=== PATIENT | male | born 1960 ===

== ENCOUNTER → 2017-06-13 | Outpatient (CLI) | payer BC ==
--- NOTE | 2017-06-14 08:12 | CONS ---
CONSULTATION DATE OF SERVICE: 06/13/2017 A 56-year-old gentleman had been evaluated in the sleep center for possible obstructive sleep apnea-hypopnea syndrome. HISTORY OF PRESENT ILLNESS/SLEEP-WAKE EVALUATION: SLEEP SCHEDULE: Patient's usual sleep schedule on weekdays from 10 p.m. to 5 a.m. and on weekends from around 10:30 p.m. until 7:30 a.m. FALLING ASLEEP: Usually no problem with falling asleep. No TV in bedroom. DURING SLEEP: He prefers to sleep on the side position. He sleeps with his with loud snoring and witnessed episodes of stopped breathing during the sleep. The patient wakes up form from sleep 5 times with up to 5 episodes of nocturia. DURING THE DAY/WAKE STAT: In the morning, patient wakes up tired, falling asleep during the day. Blandon Sleepiness Scale significantly increased to 17. No history of hypnagogic hallucinations, sleep paralysis or cataplexy. PAST MEDICAL HISTORY: Positive for hypertension, obesity, back problems. PAST SURGICAL HISTORY: Steroid injection to the back. MEDICATIONS: Lisinopril and second medication for the blood pressure, patient forgot the name of medication. SOCIAL HISTORY: Negative for smoking. Alcohol consumption occasional. REVIEW OF SYSTEMS: Multiple awakenings from sleep, sleepiness during the day. No fevers. No double vision. No recent chest pain. No shortness of breath. No abdominal pain. No bleeding episodes. No blood in urine. No seizure episodes. FAMILY HISTORY: Snoring. Many family members are tall. PHYSICAL EXAMINATION: GENERAL: During physical exam, a 56-year-old gentleman without distress. VITAL SIGNS: BP 150/80, HR 62, RR 16, height , weight 361, BMI 40.6. Neck 16-1/2 inches in circumference. Temperature 97.9. Oxygen saturation on room air 94%. HEENT: PERRLA, EOMI. Oropharynx low position of soft palate. Neck Supple, no JVD. Thyroid is not palpable. LUNGS Clear to percussion and to auscultation. Good air exchange. No wheezing or rhonchi. HEART S1, S2 regular. No murmurs, gallops, or rubs. ABDOMEN Soft and nontender. Bowel sounds are present. No organomegaly appreciated. EXTREMITIES No clubbing or cyanosis. 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 Cranial nerves 2 to 7 intact. There is no fasciculation or atrophy. noted. No focal deficits observed. IMPRESSION: 1. Snoring, witnessed episodes of stopped breathing during the sleep, multiple awakenings from sleep, significant excessive daytime sleepiness. Blandon Sleepiness Scale increased to 17. 2. Significant excessive daytime sleepiness dictate necessity to include hypersomnia in differential diagnosis. No history of cataplexy, sleep paralysis or hypnagogic hallucinations, although. 3. Obesity, body mass index 40.6. 4. Hypertension. 5. Back problems, status post steroid injection. PLAN: 1. Polysomnography for evaluation of patient's breathing during sleep. 2. CPAP/BiPAP titration if sleep study confirms obstructive sleep apnea-hypopnea syndrome. 3. Preferable position during sleep on the side. 4. No driving if patient feels any sleepiness. Patient is aware of civil and criminal liability for unsafe driving. 5. I will see patient for follow-up visit to explain results of testing and following plan. Sincerely, Abdullahi Wall MD, PhD, FAASM Diplomat of [place] [employer] [place] [employer] Mechanical Operator of [facility] MMODL / IJN: [id number] /
== END | disposition home or self-care (01) ==
LOC: SLEEP 16:57
PROVIDERS: ATTEND Internal Medicine
DX: R06.83 Snoring (principal); E66.9 Obesity, unspecified; I10 Essential (primary) hypertension; G47.10 Hypersomnia, unspecified
CPT/HCPCS: 99211

== ENCOUNTER 2020-01-16 19:21 | Inpatient (IN) | payer BC, OTHER ==
[2020-01-16 20:29] LABS: Basophils % (A) 0 %; Eosinophils # (A) 0.2 k/uL (0-0.7); Eosinophils % (A) 2 %; HCT 41.9 % (39.0-53.0); HGB 13.9 gm/dL (13.0-17.5); Lymphocytes # (A) 1.3 k/uL (1.0-4.8); Lymphocytes % (A) 11 %; MCH 29.1 pg (25.0-35.0); MCHC 33.1 g/dL (31.0-37.0); MCV 87.7 fL (80.0-100.0); Mean Platelet Volume 7.8; Monocytes # (A) 0.7 k/uL (0-1.0); Monocytes % (A) 6 %; Neutrophils # (A) 9.5 k/uL (1.3-7.7); Neutrophils % (A) 80 %; Platelet Count 174 k/uL (150-450); RBC 4.77 m/uL (4.30-5.90); RDW 12.7 % (11.5-15.5); WBC 11.9 k/uL (3.8-10.6)
[2020-01-16] MEDS ORDERED: KETOROLAC 30 MG/ML 1 ML VIAL IVP STA (20:37)
[2020-01-16 20:39] LABS: ALT 28 U/L (4-49); AST 27 U/L (17-59); African American GFR (CKD) >90 (>60 ml/min/1.73 sqM); Albumin 3.4 g/dL (3.5-5.0); Alkaline Phosphatase 90 U/L (38-126); Anion Gap 8 mmol/L; Blood Urea Nitrogen 14 mg/dL (9-20); Calcium 8.4 mg/dL (8.4-10.2); Carbon Dioxide 21 mmol/L (22-30); Chloride 106 mmol/L (98-107); Glucose 138 mg/dL (74-99); Non-African American GFR(CKD) 87 (>60 ml/min/1.73 sqM); Potassium 3.9 mmol/L (3.5-5.1); Sodium 135 mmol/L (137-145); Total Bilirubin 0.7 mg/dL (0.2-1.3); Total Protein 6.3 g/dL (6.3-8.2)
--- NOTE | 2020-01-16 20:44 | US ---
EXAMINATION TYPE: US venous doppler duplex LE RT DATE OF EXAM: 01/16/2020 8:37 PM COMPARISON: NONE CLINICAL HISTORY: warmth, swelling, redness. Patient hit right bryan on something x1 month ago, pain and redness starting 3 days ago SIDE PERFORMED: Right TECHNIQUE: The lower extremity deep venous system is examined utilizing real time linear array sonog darwin with graded compression, doppler sonography and color-flow sonography. VESSELS IMAGED: External Iliac Vein (EIV) Common Femoral Vein Deep Femoral Vein Greater Saphenous Vein * Femoral Vein Popliteal Vein Small Saphenous Vein * Proximal Calf Veins (* superficial vessels) Right Leg: Negative for DVT. At the area of the patient's redness on the right bryan, there is a comp joaquin area visualized measuring 5.8 x 1.8 x 5.6 cm Left Leg: IMPRESSION: No evidence of deep vein thrombosis in the right leg. Complex elongated fluid collection in the right calf. I would consider possibilities of abscess and h ematoma.
[2020-01-16 20:51] LABS: C Reactive Protein 170.2 mg/L (<10.0)
[2020-01-16] MEDS ORDERED: ACETAMINOPHEN TAB 325 MG TAB PO PRN (21:22)
[2020-01-16] MEDS ORDERED: IBUPROFEN 400 MG TAB PO PRN (21:22)
[2020-01-16] MEDS ORDERED: NALOXONE 0.4 MG/ML 1 ML VIAL IV PRN (21:22)
--- NOTE | 2020-01-16 21:22 | ED ---
General Adult HPI - General Chief complaint: Extremity Injury, Lower Stated complaint: Cellulitis Time Seen by Provider: 01/16/20 19:34 Source: patient, family Mode of arrival: wheelchair Limitations: physical limitation - History of Present Illness Initial comments: The patient is a 59-year-old male with past history of hypertension who presents to the emergency room with right lower extremity redness and swelling. Reports that one month ago he ended up hitting his bryan on a piece of farm equipment and developed ecchymosis over the site. States that this then resolved however over the past 3 days he has developed redness and swelling. He was seen at an urgent care yesterday and was diagnosed with cellulitis. They placed him on Keflex and has taken 4 doses so far. They did put an outline around the redness and states that the swelling has extended more proximal than the outline. Redness has now extended up to the patient's knee when yesterday it was only mid calf. Does admit to fevers of 102 at home. He took 500 mg of Tylenol prior to arrival. He denies a history of MRSA. No ankle, knee or hip pain. No hardware in the extremity. Denies a history of DVT or PE. Patient is not on any blood thinners. There are no other alleviating, precipitating or modifying factors - Related Data Home Medications Medication Instructions Recorded Confirmed Lisinopril 40 mg PO DAILY 01/16/20 01/16/20 amLODIPine [Norvasc] 10 mg PO DAILY 01/16/20 01/16/20 Allergies Allergy/AdvReac Type Severity Reaction Status Date / Time No Known Allergies Allergy Verified 01/16/20 21:31 Review of Systems ROS Statement: Those systems with pertinent positive or pertinent negative responses have been documented in the HPI. ROS Other: All systems not noted in ROS Statement are negative. Past Medical History Past Medical History: Hypertension History of Any Multi-Drug Resistant Organisms: None Reported Past Surgical History: No Surgical Hx Reported Past Psychological History: No Psychological Hx Reported Smoking Status: Never smoker Past Alcohol Use History: Occasional Past Drug Use History: None Reported - Past Family History Father Family Medical History: No Reported History General Exam Limitations: physical limitation General appearance: alert, in no apparent distress Respiratory exam: Present: normal lung sounds bilaterally. Absent: respiratory distress, wheezes, rales, rhonchi, stridor Cardiovascular Exam: Present: regular rate, normal rhythm, normal heart sounds. Absent: systolic murmur, diastolic murmur, rubs, gallop, clicks GI/Abdominal exam: Present: soft, normal bowel sounds. Absent: distended, tenderness, guarding, rebound, rigid Extremities exam: Present: other (redness right anterior skin. Extends ankle to just distal to the knee and wraps along the medial aspect. No obvious overlying disrupted skin. There is pitting edema but no gross fluctuance. Compartments are soft. 2+ DP and PT pulses. Intact distal sensation. 5/5 muscle strength in the bilateral lower extremities including hip flexors, knee extensors, ankle and great toe dorsiflexors and foot plantarflexors) Course Vital Signs 01/16/20 01/16/20 19:28 22:06 Temperature 99.7 F H 98.2 F Pulse Rate 85 60 Respiratory 17 18 Rate Blood Pressure 102/67 104/57 O2 Sat by Pulse 96 95 Oximetry Medical Decision Making - Medical Decision Making Upon arrival the patient is placed in room 10. A thorough history and physical exam was performed. Peripheral IV was established. Laboratory studies were conducted. The patient had an ultrasound of his right lower trauma performed. Every studies demonstrate a C-reactive protein of 170. White blood cell count is 11.9. Ultrasound is negative for DVT however at the area of the patient's redness there is a complex area visualized 5.8 x 1.8 x 5.6 cm. this is concerning for hematoma versus abscess. I discussed this information with the patient. Blood cultures were obtained and the patient was started on Unasyn and Vanco. I did perform a CT of the patient's lower extremity which continues to demonstrate that starting of fluid involving the medial and anterior aspect of the Related to cellulitis and abscess. I called and discussed the case with Dr. Pardo. He accepted admission for the patient. I did place orthopedic on consult as well as Dr. Rodriguez. Patient reluctant to stay however I did discuss the risk of losing his limb and even secondary to untreated abscess. Patient understood and agreed to stay. Patient was transported the floor in stable condition - Lab Data Result diagrams: 01/18/20 06:02 01/18/20 06:02 Lab Results 01/16/20 01/16/20 01/16/20 Range/Units 20:15 20:15 20:15 WBC 11.9 H (3.8-10.6) k/uL RBC 4.77 (4.30-5.90) m/uL Hgb 13.9 (13.0-17.5) gm/dL Hct 41.9 (39.0-53.0) % MCV 87.7 (80.0-100.0) fL MCH 29.1 (25.0-35.0) pg MCHC 33.1 (31.0-37.0) g/dL RDW 12.7 (11.5-15.5) % Plt Count 174 (150-450) k/uL Neutrophils % 80 % Lymphocytes % 11 % Monocytes % 6 % Eosinophils % 2 % Basophils % 0 % Neutrophils # 9.5 H (1.3-7.7) k/uL Lymphocytes # 1.3 (1.0-4.8) k/uL Monocytes # 0.7 (0-1.0) k/uL Eosinophils # 0.2 (0-0.7) k/uL Basophils # 0.0 (0-0.2) k/uL Sodium 135 L (137-145) mmol/L Potassium 3.9 (3.5-5.1) mmol/L Chloride 106 (98-107) mmol/L Carbon Dioxide 21 L (22-30) mmol/L Anion Gap 8 mmol/L BUN 14 (9-20) mg/dL Creatinine 0.97 (0.66-1.25) mg/dL Est GFR (CKD-EPI)AfAm >90 (>60 ml/min/1.73 sqM) Est GFR (CKD-EPI)NonAf 87 (>60 ml/min/1.73 sqM) Glucose 138 H (74-99) mg/dL Plasma Lactic Acid Jaswant 0.7 (0.7-2.0) mmol/L Calcium 8.4 (8.4-10.2) mg/dL Total Bilirubin 0.7 (0.2-1.3) mg/dL AST 27 (17-59) U/L ALT 28 (4-49) U/L Alkaline Phosphatase 90 (38-126) U/L C-Reactive Protein 170.2 H (<10.0) mg/L Total Protein 6.3 (6.3-8.2) g/dL Albumin 3.4 L (3.5-5.0) g/dL Disposition Clinical Impression: Cellulitis, Abscess, Pyrexia Disposition: ADMITTED IP [facility] Condition: Stable Is patient prescribed a controlled substance at d/c from ED?: No Decision to Admit Reason: Admit from EC Decision Date: 01/16/20 Decision Time: 21:22
[2020-01-16] MEDS ORDERED: VANCOMYCIN IV PER PHARMACY 1 EACH MISC MISCELLANE PRN (21:26)
[2020-01-16] MEDS ORDERED: AMPICILLIN-SULBACTAM 3 GM in SODIUM CHLORIDE 0.9% 100 ML IVPB ONE (22:00)
[2020-01-16] MEDS: SODIUM CHLORIDE 0.9% 1,000 ML IV SCH (22:03)
--- NOTE | 2020-01-16 22:17 | CT ---
EXAMINATION TYPE: CT lower extremity RT w con DATE OF EXAM: 01/16/2020 COMPARISON: None HISTORY: right lower leg pain, redness, swelling CT DLP: 334.6 mGycm Automated exposure control for dose reduction was used. CONTRAST: Performed with IV Contrast, patient injected with 100 mL of Isovue 300. Images were obtained from the distal femur to the distal tibia with intravenous contrast. There is diffuse subcutaneous edema around the lower leg. There is fat stranding and fluid involving the medial aspect of the calf muscle. There is no sign of knee joint effusion. There is subcutaneous fluid collection over the anterior medial aspect of the lower tibia that measures 4.7 x 1.8 cm in tra nsverse maximum dimension. The length is 10 cm. I see no bony destructive process. There is no pathologic enhancement. IMPRESSION: No fracture seen. Fat stranding and fluid involving the medial and anterior aspect of the calf that c ould relate to cellulitis and abscess. Elongated fluid collection seen in the subcutaneous tissues.
[2020-01-16] MEDS ORDERED: VANCOMYCIN 2,000 MG in SODIUM CHLORIDE 0.9% 500 ML 500 ML IVPB ONE (23:00)
[2020-01-17 06:36] LABS: Basophils % (A) 0 %; Eosinophils % (A) 0 %; HCT 41.6 % (39.0-53.0); HGB 13.2 gm/dL (13.0-17.5); Lymphocytes # (A) 1.2 k/uL (1.0-4.8); Lymphocytes % (A) 10 %; MCH 28.5 pg (25.0-35.0); MCHC 31.8 g/dL (31.0-37.0); MCV 89.6 fL (80.0-100.0); Mean Platelet Volume 8.2; Monocytes # (A) 0.8 k/uL (0-1.0); Monocytes % (A) 7 %; Neutrophils # (A) 9.6 k/uL (1.3-7.7); Neutrophils % (A) 81 %; Platelet Count 167 k/uL (150-450); RBC 4.64 m/uL (4.30-5.90); WBC 11.9 k/uL (3.8-10.6)
[2020-01-17 06:54] LABS: ALT 26 U/L (4-49); AST 22 U/L (17-59); African American GFR (CKD) >90 (>60 ml/min/1.73 sqM); Albumin 3.3 g/dL (3.5-5.0); Alkaline Phosphatase 98 U/L (38-126); Anion Gap 6 mmol/L; Blood Urea Nitrogen 14 mg/dL (9-20); Calcium 8.1 mg/dL (8.4-10.2); Carbon Dioxide 26 mmol/L (22-30); Chloride 105 mmol/L (98-107); Glucose 107 mg/dL (74-99); Non-African American GFR(CKD) >90 (>60 ml/min/1.73 sqM); Potassium 3.9 mmol/L (3.5-5.1); Sodium 137 mmol/L (137-145); Total Bilirubin 0.9 mg/dL (0.2-1.3); Total Protein 6.2 g/dL (6.3-8.2)
[2020-01-17] MEDS: KETOROLAC 30 MG/ML 1 ML VIAL IVP PRN ×3 (07:42→23:48)
[2020-01-17] MEDS: amLODIPine 10 MG TAB PO SCH (07:43)
[2020-01-17] MEDS: LISINOPRIL 20 MG TAB PO SCH (07:43)
[2020-01-17] MEDS: VANCOMYCIN 2,000 MG in SODIUM CHLORIDE 0.9% 500 ML 500 ML IVPB SCH ×2 (07:44→15:43)
[2020-01-17] MEDS: SODIUM CHLORIDE 0.9% 1,000 ML IV SCH ×2 (11:06→20:08)
[2020-01-17] MEDS: HYDROcodone/APAP 7.5-325MG 1 EACH TAB PO PRN ×2 (12:00→21:34)
--- NOTE | 2020-01-17 12:09 | P.CNOR ---
History of Present Illness - [facility] Consult date: 01/17/20 Consult reason: other History of present illness: Patient is a 59-year-old male who presented to [facility] yesterday evening with regards to redness, pain, swelling involving his right lower extremity. Apparently about a month ago patient was working with some farm equipment and scraped the anterior aspect of his right lower leg. This seemed to subsequently improve and had no acute issues. He states about 3 days ago he started to notice swelling and redness of the lower extremity. Since it started, it has not improved, he is also developed fevers which prompted him to come to the hospital. Upon arrival to the hospital, imaging and lab tests were done. Labs revealed elevated white blood cell count and CRP level. Ultrasound was negative for acute DVT, computed tomography scan of lower leg did notice significant soft tissue swelling involving the right calf area. Patient was admitted under internal medicine, our orthopedic team and infectious disease was consult. Patient was evaluated today at bedside, he is resting comfortably. He notes most of the discomfort in the leg happens when he weightbears. He denies any fevers at this time. He denies any chills, episodes of vomiting. Sides the discomfort in the right lower leg, he has no other orthopedic complaints. He d enies any previous surgery on the right lower extremity. Review of Systems Constitutional: Reports as per [facility] Past Medical History Past Medical History: Hypertension History of Any Multi-Drug Resistant Organisms: None Reported Past Surgical History: No Surgical Hx Reported Additional Past Surgical History / Comment(s): cortizone shot in back Past Anesthesia/Blood Transfusion Reactions: No Reported Reaction Past Psychological History: No Psychological Hx Reported Smoking Status: Never smoker Past Alcohol Use History: Occasional Past Drug Use History: None Reported - Past Family History Father Family Medical History: No Reported History Medications and Allergies Home Medications Medication Instructions Recorded Confirmed Type Lisinopril 40 mg PO DAILY 01/16/20 01/16/20 History amLODIPine [Norvasc] 10 mg PO DAILY 01/16/20 01/16/20 History Allergies Allergy/AdvReac Type Severity Reaction Status Date / Time No Known Allergies Allergy Verified 01/16/20 21:31 Physical Examination Right lower extremity: No obvious open lesions or sores visualized. Obvious erythema and soft tissue swelling noted in the right lower extremity, this is distal to the knee and proximal to the ankle. It extends over the anterior aspect of the lower leg w raps around the medial side into the calf region. There are multiple black marker circles representing areas of erythema. They seem to have extended past the initial lines. The calf is soft with palpation. Area of significant swelling and most tenderness is over the tibia meets the calf muscle along the medial border. Difficult to appreciate an area of fluctuance versus soft tissue swelling. Plantar flexion, dorsiflexion, EHL, FHL are intact, no tenderness around the ankle with range of motion. Patient is full motion with extension and flexion at the knee, no pain reproduced. There is no effusion present. Logroll maneuver the hip reproduces no pain. Sensory exam to light touch throughout the extremities intact, his dorsalis pedis pulses 2+. Results - Labs Labs: Abnormal Lab Results - Last 24 Hours (Table) 01/16/20 01/16/20 01/16/20 Range/Units 20:15 20:15 23:52 WBC 11.9 H (3.8-10.6) k/uL Neutrophils # 9.5 H (1.3-7.7) k/uL Sodium 135 L (137-145) mmol/L Carbon Dioxide 21 L (22-30) mmol/L Glucose 138 H (74-99) mg/dL Calcium (8.4-10.2) mg/dL C-Reactive Protein 170.2 H 162.3 H (<10.0) mg/L Total Protein (6.3-8.2) g/dL Albumin 3.4 L (3.5-5.0) g/dL 01/17/20 01/17/20 Range/Units 05:46 05:46 WBC 11.9 H (3.8-10.6) k/uL Neutrophils # 9.6 H (1.3-7.7) k/uL Sodium (137-145) mmol/L Carbon Dioxide (22-30) mmol/L Glucose 107 H (74-99) mg/dL Calcium 8.1 L (8.4-10.2) mg/dL C-Reactive Protein (<10.0) mg/L Total Protein 6.2 L (6.3-8.2) g/dL Albumin 3.3 L (3.5-5.0) g/dL H & H 01/16/20 01/17/20 Range/Units 20:15 05:46 Hgb 13.9 13.2 (13.0-17.5) gm/dL Hct 41.9 41.6 (39.0-53.0) % Result Diagrams: 01/17/20 05:46 01/17/20 05:46 Assessment and Plan Plan: Imaging: Report from the computed tomography scan of the leg was reviewed, they no fluid collection in the calf region. Ultrasound was negative for DVT according to report Assessment: 1. Right lower extremity cellulitis 2. Possible right lower extremity abscess 3. Other medical comorbidities Plan: I was able to discuss the case, including with physical exam findings and imaging studies might attending Dr. Nelson. There is a possibility that abscess has formed in the right lower leg, I will tentatively schedule the patient for an incision and drainage with irrigation and debridement for . I would like to continue the IV antibiotics and reevaluate the morning of 01/18/2020 Patient will be made nothing by mouth after midnight Other director medical science recommendations Recommend weight-bear as tolerated, ice and elevate often Pain control Further recommendations to follow
--- NOTE | 2020-01-17 17:00 | CONS ---
CONSULTATION DATE OF CONSULTATION: 01/17/2020. REASON FOR CONSULTATION: Right lower extremity cellulitis. HISTORY OF PRESENT ILLNESS: The patient is a 59-year-old male who apparently did have a history of a fall with something about a month ago and scraped the anterior aspect of his right leg. This subsequently healed up and the patient had no issue until about 3 days when he started having swelling and redness of the right anterior as well as the posterior leg area. The patient denies any further trauma. Has been complaining of pain to the leg to be throbbing, almost 7 out of 10 in severity. The patient went to an Urgent Care in the [facility]. The patient has been diagnosed with cellulitis. The patient was started on oral Keflex. The patient took about 4 doses. The patient did have a ana this around the area of the redness and was told if any swelling or redness has crossed in that ana to go to the ER. The patient subsequently presented to the ER last night with concern for worsening cellulitis of the right lower extremity. On arrival to the ER, the patient did have a low-grade fever of 99.7, white count 11.1. CRP was elevated at 170. He did have blood cultures drawn which are currently pending. The patient did have a lower extremity Doppler was negative for DVT. CT was suggestive of cellulitis and possible fluid collection on the posterior leg area. Patient was started on vancomycin and admitted to the hospital. Infectious Disease was consulted for further recommendations regarding antibiotic therapy. REVIEW OF SYSTEMS: Positive points have been mentioned in HPI. Rest of systems are negative. PAST MEDICAL HISTORY: Hypertension. PAST SURGICAL HISTORY: No surgeries. SOCIAL HISTORY: Patient occasionally drinks. Denies smoking or drug use. FAMILY HISTORY: No pertinent findings noticed. ALLERGIES: No known drug allergies. MEDICATIONS: The patient is currently on Tylenol, [place], Norvasc, Motrin, Toradol, Zestril, Narcan, and vancomycin, pharmacy to dose. Patient is currently getting 2 grams q.12 hours after the dose of Unasyn in the ER yesterday. PHYSICAL EXAMINATION: Blood pressure 124/64 with a pulse of 71, temperature 98.1. He is 94% on room air. General description is a middle-aged male lying in bed in no distress. No tachypnea or accessory muscle of respiration use. HEENT: Shows no pallor or scleral icterus. Oral mucosa membranes dry. No pharyngeal erythema or thrush. Neck: Trachea central. No thyromegaly. LUNGS: Unlabored breathing. Clear to auscultation anteriorly. No wheeze or crackles. Heart S1, S2. Regular rate and rhythm. ABDOMEN: Soft, no tenderness. No rigidity. Extremities: Right leg did have diffuse swelling and redness slightly tender on the posterior aspect area. No fluctuation induration or any drainage was noticed. NEUROLOGIC: The patient is awake, alert and oriented times three. Mood and affect normal. LABS: Hemoglobin 13.2, white count 11.9 with a BUN of 14, creatinine 0.91. Electrolytes have been normal. Liver enzymes are normal. Blood culture so far pending. Lower extremity CT and ultrasound report as mentioned above. DIAGNOSTIC IMPRESSION AND PLAN: Patient admitted to the hospital with acute right lower extremity cellulitis in this patient who did have diffuse swelling and redness with question of possible fluid collection. Clinically not behaving as an abscess. Though not entirely excluded. Possible hematoma and likely need to cover for the Gram-positive skin александр such as strep. The patient seemed to be less risk factor for a community assisted MRSA infection. PLAN: 1. Discontinue vancomycin. 2. Start cefazolin 2 grams q.8 hours. 3. Await surgical I and D of that area and fluid should be sent for culture. 4. We will follow on his clinical condition and culture to further adjust medication if needed. Thank you for this consultation. We will follow this patient along with you. MMODL / IJN: [id number] /
--- NOTE | 2020-01-17 17:06 | HP ---
HISTORY AND PHYSICAL 59-year-old white male presents with trauma to his leg 2 weeks ago. Since then, he has had redness, pain, swelling with great amount of swelling in his right lower extremity. CT scan shows possible abscess in his leg. He had elevated white cell CRP. No fever, chills. Ultrasound was negative for DVT, but he had some severe swelling and possible abscess. We are going to decide whether just to continue IV antibiotics or do an incision and drainage per orthopedics or Infectious Disease. PAST MEDICAL HISTORY: Past medical history of hypertension and he has had cortisone shots in his back. Otherwise unremarkable past medical history. HOME MEDICINES: Lisinopril 40 daily, amlodipine 10 mg daily. ALLERGIES: No known drug allergies. PHYSICAL EXAMINATION: CARDIOVASCULAR: S1, S2. Lungs clear. Hematology negative Homans. Psych fair mood and affect. Neurologic cranial nerves intact. Integument shows significant redness swelling to the right lower calf area distal to the knee, proximal to the ankle and spreads to the anterior aspect of the lower leg and to the medial calf region. Multiple black marker circles. There is erythema and the redness appears to be going past these lines. He says the swelling has worsened over the last night. ASSESSMENT: 1. Cellulitis versus abscess right lower leg, rapidly progressive. 2. Leukocytosis secondary to above. 3. Hypertension. PLAN: Continue with IV antibiotics. I would possibly recommend incision and drainage. Continue with IV antibiotics. If he does not improve, we will need infectious incision and drainage. Infectious Disease consult is pending. MMODL / IJN: [id number] /
[2020-01-18 06:12] LABS: Basophils % (A) 1 %; Eosinophils # (A) 0.1 k/uL (0-0.7); Eosinophils % (A) 2 %; HCT 41.7 % (39.0-53.0); HGB 13.2 gm/dL (13.0-17.5); Lymphocytes # (A) 1.2 k/uL (1.0-4.8); Lymphocytes % (A) 15 %; MCH 28.7 pg (25.0-35.0); MCHC 31.7 g/dL (31.0-37.0); MCV 90.5 fL (80.0-100.0); Mean Platelet Volume 7.9; Monocytes # (A) 0.6 k/uL (0-1.0); Monocytes % (A) 8 %; Neutrophils # (A) 5.9 k/uL (1.3-7.7); Neutrophils % (A) 73 %; Platelet Count 180 k/uL (150-450); RBC 4.61 m/uL (4.30-5.90); RDW 13.1 % (11.5-15.5)
[2020-01-18 06:30] LABS: African American GFR (CKD) >90 (>60 ml/min/1.73 sqM); Anion Gap 5 mmol/L; Blood Urea Nitrogen 15 mg/dL (9-20); Calcium 8.2 mg/dL (8.4-10.2); Carbon Dioxide 26 mmol/L (22-30); Chloride 106 mmol/L (98-107); Glucose 113 mg/dL (74-99); Non-African American GFR(CKD) >90 (>60 ml/min/1.73 sqM); Potassium 4.7 mmol/L (3.5-5.1); Sodium 137 mmol/L (137-145)
[2020-01-18] MEDS ORDERED: VANCOMYCIN TROUGH DUE 1 EACH MISC MISCELLANE ONE (07:00)
[2020-01-18] MEDS: LISINOPRIL 20 MG TAB PO SCH (08:50)
[2020-01-18] MEDS: amLODIPine 10 MG TAB PO SCH (08:50)
[2020-01-18] MEDS: SODIUM CHLORIDE 0.9% 1,000 ML IV SCH ×2 (08:57→17:10)
[2020-01-18] MEDS ORDERED: SODIUM CHLORIDE 0.9% 1,000 ML IV ONE (09:39)
[2020-01-18] MEDS ORDERED: MIDAZOLAM 2 MG/2 ML VIAL ONE (10:31)
[2020-01-18] MEDS ORDERED: ALFENTANIL 500 MCG/ML 2 ML AMP IV ONE (10:31)
[2020-01-18] MEDS ORDERED: SUCCINYLCHOLINE CHLORIDE 100 MG/5 ML SYR IV ONE (10:31)
[2020-01-18] MEDS ORDERED: LIDOCAINE 1% INJ 10MG/ML (20 ML MDV) ONE (10:31)
[2020-01-18] MEDS ORDERED: PROPOFOL 10 MG/ML 20 ML VIAL IV ONE (10:31)
--- NOTE | 2020-01-18 11:19 | P.OP ---
Date of Procedure: 01/18/20 Preoperative Diagnosis: Right lower extremity abscess Postoperative Diagnosis: Right lower extremity abscess Procedure(s) Performed: Incision with drainage and irrigation right lower extremity abscess Anesthesia: ADILENE Surgeon: Kade Nelson Estimated Blood Loss (ml): 12 Pathology: none sent Condition: stable Disposition: PACU Indications for Procedure: 59-year-old patient seen with a probable right lower extremity abscess. We discussed incision with drainage and irrigation. Patient was agreeable and consent was obtained. Operative Findings: See description of procedure Description of Procedure: The patient was taken to the operative suite. The patient underwent a general anesthetic by the department of anesthesia. A well-padded tourniquet was placed on the right proximal lower extremity. Right lower extremity was prepped and draped in the normal sterile orthopedic fashion. I now made an incision measuring approximately 5 cm in length linear probable incision. I bluntly dissected down and noted a moderate abscess with che colored serous fluid. Cultures were obtained of this fluid. The cavity was explored and there was no debris or necrotic tissue in that cavity. The cavity was noted to be along the junction of the soleus and gastrocnemius posteriorly and along the anterior tibialis in the anterior tibia anteriorly. I irrigated the wound copiously with normal saline. We then explored the wound one more time and noted no residual abnormal looking tissue. I now loosely repaired the incision with nylon suture with a underlying drain in place. Sterile dressings were applied. No tourniquet was utilized. The patient was awakened, transferred to a bed and recovery stable condition.
[2020-01-18] MEDS ORDERED: HYDROmorphone 1 MG/ML 1 ML SYRINGE IVP PRN (11:24)
[2020-01-18] MEDS: HYDROmorphone 1 MG/ML 1 ML SYRINGE IVP ONE ×2 (11:31→11:42)
[2020-01-18] MEDS: HYDROcodone/APAP 7.5-325MG 1 EACH TAB PO PRN (17:10)
--- NOTE | 2020-01-18 18:03 | PN ---
PROGRESS NOTE DATE OF SERVICE: 01/18/2020 REASON FOR FOLLOWUP: Right leg abscess and cellulitis. INTERVAL HISTORY: The patient is currently afebrile. The patient was taken to the OR and is status post drainage of the abscess. Cultures have been done which are currently pending. The patient's pain is currently controlled. Denies having any chest pain or shortness of breath or cough. No abdominal pain or diarrhea. PHYSICAL EXAMINATION: Blood pressure 119/67, pulse of 67, temperature 98.3. He is 93% on room air. General description is a middle-aged male lying in bed in no distress. RESPIRATORY SYSTEM: Unlabored breathing. Clear to auscultation anteriorly. HEART: S1, S2. Regular rate and rhythm. ABDOMEN: Soft. No tenderness. Right leg is currently dressed up. LABS: Hemoglobin 13.2 with a white count of 8.0, creatinine 0.84. DIAGNOSTIC IMPRESSION AND PLAN: Patient with right leg abscess and cellulitis, status post surgical drainage. Will wait for the cultures to finalize. Keep the patient on cefazolin and adjust antibiotic further on the basis of the culture report and monitor his clinical course closely. MMODL / IJN: [id number] /
[2020-01-18] MEDS: KETOROLAC 30 MG/ML 1 ML VIAL IVP PRN (20:37)
--- NOTE | 2020-01-18 20:55 | PN ---
PROGRESS NOTE This patient still has severe redness of the lower legs. Suspect he will have to go to surgery and have I&D done, which apparently he did today due to worsening leg. Dr. Nelson took him in for right lower extremity abscess. He had a 5 cm in length incision on his soleus gastrocnemius posteriorly. Irrigated the wound, placed sutures in there. He had a moderate abscess with che-colored serous fluid. Cultures were obtained and are pending. Remains on cefazolin [address] Rodriguez. Prognosis extremely guarded. Continue current treatments. MMODL / IJN: [id number] /
[2020-01-19] MEDS: SODIUM CHLORIDE 0.9% 1,000 ML IV SCH ×2 (03:07→16:34)
[2020-01-19] MEDS: LISINOPRIL 20 MG TAB PO SCH (08:40)
[2020-01-19] MEDS: amLODIPine 10 MG TAB PO SCH (08:40)
[2020-01-19] MEDS: KETOROLAC 30 MG/ML 1 ML VIAL IVP PRN ×2 (08:40→17:56)
--- NOTE | 2020-01-19 10:45 | P.PN ---
Subjective Progress Note Date: 01/19/20 Principal diagnosis: Status post I&D right leg abscess patient is examined today at bedside, he is resting comfortably. He notes some generalized discomfort in the region. Incision was made on the right lower leg. He has no fevers or chills at this time. Objective - Vital Signs Vital signs: Vital Signs Temp 97.9 F 01/19/20 04:54 Pulse 63 01/19/20 04:54 Resp 17 01/19/20 04:54 BP 134/72 01/19/20 04:54 Pulse Ox 96 01/19/20 05:23 Intake & Output 01/18/20 01/19/20 01/19/20 18:59 06:59 18:59 Intake Total 950 2600 Output Total 12 Balance 938 2600 Intake: IV 850 Intake, IV Titration 100 200 Amount Sodium Chloride 0.9% 1, 200 000 ml @ 75 mls/hr IV . [id number] [facility] Rx#:[id number] ceFAZolin 2 gm In Sodium 100 Chloride 0.9% 50 ml @ 100 mls/hr IVPB Q8HR [facility] Rx# :[id number] Oral 2400 Output: Estimated Blood Loss 12 Other: Voiding Method Toilet Toilet # Voids 3 4 - Exam Right lower extremity: Postoperative bandage was removed today bedside, incision is clean, dry and intact, the [place] drain is in good position. Gen. or swelling in that area has improved along with the erythema. He does have generalized tenderness in the lower leg. The calf is soft. Distal neurovascular exam is intact - Labs CBC & Chem 7: 01/18/20 06:02 01/18/20 06:02 Labs: Microbiology - Last 24 Hours (Table) 01/16/20 20:15 Blood Culture - Preliminary Blood No Growth after 48 hours 01/18/20 11:09 Gram Stain - Preliminary Leg - Right Wound Culture - Preliminary 01/18/20 11:09 Anaerobic Culture - Preliminary Leg - Right Assessment and Plan Plan: Assessment: Status post I&D right leg abscess Right leg cellulitis Plan: Await culture/sensitivity results Pain control, continue current medication Daily dressing changes/ice and elevate Weight-bear as tolerated Other medical staff services manager recommendations Further recommendations to follow Time with Patient: Less than 30
[2020-01-19] MEDS: ASPIRIN 81 MG PO SCH ×2 (12:24→20:09)
[2020-01-19] MEDS: HYDROcodone/APAP 7.5-325MG 1 EACH TAB PO PRN ×2 (16:35→22:43)
--- NOTE | 2020-01-19 17:11 | PN ---
PROGRESS NOTE DATE OF SERVICE: 01/19/2020. REASON FOR FOLLOWUP: Right leg abscess and cellulitis. INTERVAL HISTORY: The patient is currently afebrile. Overall pain and discomfort to the right leg is currently controlled. Denies having any chest pain or cough. No abdominal pain or diarrhea. PHYSICAL EXAMINATION: Blood pressure 140/74 with a pulse of 85, temperature 98, he is 93% on room air. General description is a middle-aged male, lying in bed in no distress. RESPIRATORY SYSTEM: Unlabored breathing, clear to auscultation anteriorly. HEART: S1, S2. Regular rate and rhythm. ABDOMEN: Soft, no tenderness. Right leg swelling and redness has improved. No drainage. DIAGNOSTIC IMPRESSION AND PLAN: Patient with right lower extremity abscess and cellulitis, status post drainage, waiting for the culture to finalize to determine discharge antibiotics. Currently covered with cefazolin to continue, adjusting antibiotic further based on culture report. Continue supportive care. MMODL / IJN: [id number] / MTDD
--- NOTE | 2020-01-19 17:33 | P.PN ---
Subjective Progress Note Date: 01/19/20 This is a 59-year-old gentleman admitted with right leg abscess, cellulitis, status post I&D, postop day #1. Tolerated procedure well. Pain controlled. Cultures pending. Maintained on IV ceftezolin as per infectious disease. Afebrile.. Objective - Vital Signs Vital signs: Vital Signs Temp 98 F 01/19/20 11:57 Pulse 65 01/19/20 11:57 Resp 18 01/19/20 15:28 BP 148/74 01/19/20 11:57 Pulse Ox 93 L 01/19/20 11:57 Intake & Output 01/18/20 01/19/20 01/19/20 18:59 06:59 18:59 Intake Total 950 2600 1400 Output Total 12 Balance 938 2600 1400 Intake: IV 850 Intake, IV Titration 100 200 750 Amount Sodium Chloride 0.9% 1, 200 650 000 ml @ 75 mls/hr IV . [id number] [facility] Rx#:[id number] ceFAZolin 2 gm In Sodium 100 100 Chloride 0.9% 50 ml @ 100 mls/hr IVPB Q8HR [facility] Rx# :[id number] Oral 2400 650 Output: Estimated Blood Loss 12 Other: Voiding Method Toilet Toilet Toilet # Voids 3 4 2 - Exam PHYSICAL EXAM: VITAL SIGNS: As above GENERAL: Sitting up in bed, no acute HEENT: Conjunctivae normal. eyes normal. NECK: No JVD. No thyroid enlargement. No LNs CARDIOVASCULAR: S1, S2 regular.. No murmur RESPIRATION: Breath sounds diminished in the bases. No rhonchi or crackles. No bronchial breathing. ABDOMEN: Soft, nontender . No guarding. no masses palpable. No ascites, No hepatosplenomegaly.Bowel sounds heard. LEGS: Right leg decreased edema, tender with dressing clean dry and intact,stephon drain present, soft calf. PSYCHIATRY: Alert and oriented X3, mood and affect normal. NERVOUS SYSTEM: Cranial N 2-12 grossly normal. Moves all 4 limbs.No focal deficits. Strength and sensation grossly intact. Skin: no rash, warm and dry Microbiology 01/16/20 20:15 Blood Blood Culture - Preliminary No Growth after 48 hours 01/18/20 11:09 Leg - Right Gram Stain - Preliminary 01/18/20 11:09 Leg - Right Wound Culture - Preliminary 01/18/20 11:09 Leg - Right Anaerobic Culture - Preliminary - Labs CBC & Chem 7: 01/18/20 06:02 01/18/20 06:02 Labs: Microbiology - Last 24 Hours (Table) 01/16/20 20:15 Blood Culture - Preliminary Blood No Growth after 48 hours 01/18/20 11:09 Gram Stain - Preliminary Leg - Right Wound Culture - Preliminary 01/18/20 11:09 Anaerobic Culture - Preliminary Leg - Right Assessment and Plan Assessment: Right lower extremity abscess with cellulitis, status post I&D Hypertension Plan: Continue on current medication regime ,monitoring and symptomatic treatment. Cultures pending. Maintain IV antibiotics as per ID. Pain manageme nt. Follow closely with both ID and orthopedic surgery. The impression and plan of care has been dictated as directed. : I performed a history and examination of this patient, discussed the same with the dictator. I agree with the dictator's note ,documented as a scribe. Any additional findings or plans will be noted.
[2020-01-20] MEDS: HYDROcodone/APAP 7.5-325MG 1 EACH TAB PO PRN ×2 (06:24→20:01)
[2020-01-20 07:01] LABS: Basophils % (A) 1 %; Eosinophils # (A) 0.3 k/uL (0-0.7); Eosinophils % (A) 4 %; HCT 40.4 % (39.0-53.0); Lymphocytes # (A) 1.4 k/uL (1.0-4.8); Lymphocytes % (A) 19 %; MCH 28.8 pg (25.0-35.0); MCHC 32.3 g/dL (31.0-37.0); MCV 89.3 fL (80.0-100.0); Mean Platelet Volume 7.3; Monocytes # (A) 0.7 k/uL (0-1.0); Monocytes % (A) 10 %; Neutrophils # (A) 4.6 k/uL (1.3-7.7); Neutrophils % (A) 65 %; Platelet Count 253 k/uL (150-450); RBC 4.52 m/uL (4.30-5.90); RDW 12.6 % (11.5-15.5); WBC 7.1 k/uL (3.8-10.6)
[2020-01-20 07:20] LABS: African American GFR (CKD) >90 (>60 ml/min/1.73 sqM); Anion Gap 9 mmol/L; Blood Urea Nitrogen 13 mg/dL (9-20); Calcium 8.6 mg/dL (8.4-10.2); Carbon Dioxide 27 mmol/L (22-30); Chloride 102 mmol/L (98-107); Glucose 98 mg/dL (74-99); Non-African American GFR(CKD) >90 (>60 ml/min/1.73 sqM); Potassium 4.6 mmol/L (3.5-5.1); Sodium 138 mmol/L (137-145)
[2020-01-20] MEDS: ASPIRIN 81 MG PO SCH ×2 (08:21→19:58)
[2020-01-20] MEDS: LISINOPRIL 20 MG TAB PO SCH (08:21)
[2020-01-20] MEDS: amLODIPine 10 MG TAB PO SCH (08:21)
[2020-01-20] MEDS: KETOROLAC 30 MG/ML 1 ML VIAL IVP PRN (08:24)
[2020-01-20] MEDS: SODIUM CHLORIDE 0.9% 1,000 ML IV SCH ×2 (11:03→18:31)
--- NOTE | 2020-01-20 11:36 | P.PN ---
Subjective Progress Note Date: 01/20/20 Principal diagnosis: Status post I&D right leg abscess patient is examined today at bedside, he is resting comfortably. He has no fevers or chills at this time. Objective - Vital Signs Vital signs: Vital Signs Temp 97.8 F 01/20/20 05:00 Pulse 60 01/20/20 05:00 Resp 16 01/20/20 05:00 BP 129/80 01/20/20 05:00 Pulse Ox 92 L 01/20/20 05:00 Intake & Output 01/19/20 01/20/20 01/20/20 18:59 06:59 18:59 Intake Total 2380 590 100 Balance 2380 590 100 Intake: Intake, IV Titration 750 100 Amount Sodium Chloride 0.9% 1, 650 000 ml @ 75 mls/hr IV . [id number] [facility] Rx#:[id number] ceFAZolin 2 gm In Sodium 100 100 Chloride 0.9% 50 ml @ 100 mls/hr IVPB Q8HR [facility] Rx# :[id number] Oral 1630 590 Other: Voiding Method Toilet Toilet Toilet # Voids 3 2 2 - Exam Right lower extremity: [place] drain was removed today, there is a small amount of serosanguineous drainage. Swelling and erythema has improved slightly. He does have generalized tenderness in the lower leg. The calf is soft. Distal neurovascular exam is intact - Labs CBC & Chem 7: 01/20/20 06:28 01/20/20 06:28 Labs: Microbiology - Last 24 Hours (Table) 01/18/20 11:09 Gram Stain - Final Leg - Right Wound Culture - Final Staphylococcus aureus 01/16/20 20:15 Blood Culture - Preliminary Blood No Growth after 72 hours Assessment and Plan Plan: Assessment: Status post I&D right leg abscess Right leg cellulitis Plan: Culture and sensitivity results reveal staph aureus bacteria, await infectious disease recommendations for outpatient antibiotics Pain control, continue current medication Daily dressing changes/ice and elevate Weight-bear as tolerated An orthopedic standpoint patient is stable for discharge and follow-up in the outpatient setting Time with Patient: Less than 30
[2020-01-20 11:54] VITALS: RESP 18
--- NOTE | 2020-01-20 14:26 | P.DS ---
Providers Date of admission: 01/19/20 09:18 Expected date of discharge: 01/20/20 Attending physician: Mckay Pardo Consults: 01/16/20 21:23 Consult Physician Routine Consulting Provider: Yesenia Rodriguez Consult Reason/Comments: right LE cellulitis, failed o/p tx Do you want consulting provider notified?: Yes 01/16/20 21:24 Consult Physician Urgent Consulting Provider: Kade Nelson Consult Reason/Comments: acute right lower extremity cellulitis, possible abscess Do you want consulting provider notified?: Yes Primary care physician: Fariha Li MD Hospital Course: Final Diagnoses: Right lower extremity abscess with cellulitis, status post I&D, blood cultures reporting MSSA, anaerobic culture pending. Hypertension Hospital course:This is a 59-year-old gentleman admitted with right leg abscess, cellulitis, status post I&D, postop day #1. Tolerated procedure well. Pain controlled. Cultures pending. Maintained on IV ceftezolin as per infectious disease. Afebrile. Preliminary blood cultures reporting no growth at 72 hours, left leg wound culture reported MSSA, anaerobic culture pending. Significant clinical improvement. Cleared by orthopedic surgery for discharge. Patient will be discharged home today pending final anaerobic results, DC antibiotics/clearance from infectious disease, in a stable condition with guarded Prognosis. The impression and plan of care has been dictated as directed. : I performed a history and examination of this patient, discussed the same with the dictator. I agree with the dictator's note ,documented as a scribe. Any additional findings or plans will be noted. Patient Condition at Discharge: Stable Plan - Discharge Summary Discharge Rx Participant: Yes New Discharge Prescriptions: New Ibuprofen 800 mg PO Q8H PRN #40 tab PRN Reason: Pain HYDROcodone/APAP 7.5-325MG [[place] 7.5] 1 each PO Q6HR PRN #28 tab PRN Reason: Pain Continue amLODIPine [Norvasc] 10 mg PO DAILY Lisinopril 40 mg PO DAILY Discharge Medication List Lisinopril 40 mg PO DAILY 01/16/20 [History] amLODIPine [Norvasc] 10 mg PO DAILY 01/16/20 [History] HYDROcodone/APAP 7.5-325MG [[place] 7.5] 1 each PO Q6HR PRN #28 tab 01/20/20 [Rx] Ibuprofen 800 mg PO Q8H PRN #40 tab 01/20/20 [Rx] Follow up Appointment(s)/Referral(s): Fariha Li MD [Primary Care Provider] - 3 Days Jerel Wilkerson PAC [PHYSICIAN TOUR OPERATOR] - 2 Weeks Activity/Diet/Wound Care/Special Instructions: Pending DC antibiotics/clearance from infectious disease Orthopedic discharge instructions: 1. Keep incision dry and covered while showering 2. Do not remove stitches 3. Ice and elevate often 4. Plan for follow-up in the outpatient setting in 2 weeks Discharge Disposition: HOME SELF-CARE
[2020-01-20] MEDS: DOCUSATE 100 MG CAP PO PRN (17:30)
--- NOTE | 2020-01-20 23:58 | P.PN ---
Progress Note - Text Progress Note Date: 01/20/20 .REASON FOR FOLLOWUP: Right leg abscess and cellulitis. INTERVAL HISTORY: The patient remains to be afebrile. The patient pain and discomfort to the right leg has decreased in intensity, the patient denies having any chest pain or cough. No abdominal pain or diarrhea. PHYSICAL EXAMINATION: Blood pressure 133/74 with a pulse of 84, temperature 98, he is 93% on room air. General description is a middle-aged male, lying in bed in no distress. RESPIRATORY SYSTEM: Unlabored breathing, clear to auscultation anteriorly. HEART: S1, S2. Regular rate and rhythm. ABDOMEN: Soft, no tenderness. Right leg swelling and redness has decreased no purulent drainage. LABS: White count is normal blood cultures are negative wound culture finalized with MSSA DIAGNOSTIC IMPRESSION AND PLAN: Patient with right lower extremity abscess and cellulitis, status post drainage, culture has been finalized with MSSA recommend keeping the patient on IV cefazolin for at least another 24-hour we will reevaluate the wound tomorrow to determine his discharge antibiotics questions and concerns were answered
[2020-01-21] MEDS: KETOROLAC 30 MG/ML 1 ML VIAL IVP PRN ×2 (00:10→10:55)
[2020-01-21 05:46] VITALS: BP 136/79; PULSE 52; TEMP 98.2
[2020-01-21] MEDS: LISINOPRIL 20 MG TAB PO SCH (08:28)
[2020-01-21] MEDS: ASPIRIN 81 MG PO SCH (08:29)
[2020-01-21] MEDS: amLODIPine 10 MG TAB PO SCH (08:29)
[2020-01-21] MEDS: DOCUSATE 100 MG CAP PO PRN (08:29)
[2020-01-21] MEDS: HYDROcodone/APAP 7.5-325MG 1 EACH TAB PO PRN (08:36)
[2020-01-21] MEDS: SODIUM CHLORIDE 0.9% 1,000 ML IV SCH (11:19)
--- NOTE | 2020-01-21 15:18 | PN ---
PROGRESS NOTE DATE OF SERVICE: 01/18/2020 REASON FOR FOLLOWUP: Right leg wound and cellulitis. INTERVAL HISTORY: The patient is seen on rounds this morning. The patient has been afebrile, breathing comfortably, overall pain discomfort. The right leg has decreased. Denies having any chest pain or cough. No abdominal pain. No diarrhea. PHYSICAL EXAMINATION: His blood pressure is 136/79 with a pulse of 52, temperature 98.2,. he is 94% on room air. The patient is a middle-aged male, lying in bed in no distress. RESPIRATORY SYSTEM: Unlabored breathing, clear to auscultation anteriorly. HEART: S1, S2. Regular rate and rhythm. ABDOMEN: Soft, no tenderness. Right leg swelling and has slightly decreased, no drainage. LABS: No new labs have been obtained today. Wound culture with MSSA blood culture has been negative. DIAGNOSTIC IMPRESSION AND PLAN: Patient with right lower extremity wound and secondary cellulitis. Culture has been positive for MSSA. The patient did have improvement, still has significant redness. We will discharge the patient home on oral Keflex 500 mg p.o. q.6 hours for 10 days. The patient instructed with any worsening swelling or redness or fever on oral antibiotics admitted right away. At that point will try to transition to IV antibiotic therapy. All his questions and concerns were answered. MMSEBASL / SERGEN: [id number] /
== END 2020-01-21 14:01 | disposition home or self-care (01) | DRG 581 ==
LOC: EC 19:21 → 5NMEDONC 21:23 → OBSVTOIN 01-19 09:18
PROVIDERS: ADMIT Family Medicine; ATTEND Family Medicine
PROC: 0J9N0ZZ Drainage of Right Lower Leg Subcutaneous Tissue and Fascia, Open Approach (ICD-10-PCS; principal; 2020-01-18 10:27)
DX: L02.415 Cutaneous abscess of right lower limb (principal); L03.115 Cellulitis of right lower limb; I10 Essential (primary) hypertension; B95.61 Methicillin susceptible Staphylococcus aureus infection as the cause of diseases classified elsewhere; Z79.899 Other long term (current) drug therapy
CPT/HCPCS: 36415; 80048; 80053; 83605; 85025; 86140; 87040; 87070; 87075; 87077; 87186; 87205; 96365; 96375; 99284

== ENCOUNTER 2025-03-31 12:36 | Emergency (ER) | payer OTHER ==
--- NOTE | 2025-03-31 12:59 | ED ---
Extremity Problem HPI - General Chief complaint: Extremity Problem,Nontraumatic Stated complaint: R Calf/Leg issue Time Seen by Provider: 03/31/25 12:42 Source: patient, RN notes reviewed Mode of arrival: ambulatory Limitations: no limitations - History of Present Illness Initial comments: 64-year-old male presenting to the emergency room with complaints of right lower extremity pain and swelling. He states that over the past 3 days he has noticed that the right calf is became swollen, erythematous, warm to the touch that has been spreading proximally up the calf. Patient states that he has a history of cellulitis and this is the same presentations when he had to be admitted to the hospital for multiple days for IV antibiotics. Patient denies fevers, chills, nausea, vomiting. States that he has mild pain with ambulation. Denies current antibiotic use. Denies history of DVT or PE. Denies chest pain or difficulty breathing. Patient did recently travel from an [facility] vacation. Denies blood thinner use. - Related Data Home Medications Medication Instructions Recorded Confirmed amLODIPine [Norvasc] 10 mg PO DAILY 01/16/20 01/16/20 lisinopriL 40 mg PO DAILY 01/16/20 01/16/20 Previous Rx's Medication Instructions Recorded HYDROcodone/APAP 7.5-325MG [[place] 1 each PO Q6HR PRN #28 tab 01/20/20 7.5] Ibuprofen 800 mg PO Q8H PRN #40 tab 01/20/20 cephALEXin [Keflex] 500 mg PO Q6HR 10 Days #40 cap 01/21/20 Cephalexin [Keflex] 500 mg PO Q6HR #40 cap 03/31/25 Sulfamethox-Tmp 800-160Mg [Bactrim 1 each PO Q12HR #20 tab 03/31/25 Ds] Allergies Allergy/AdvReac Type Severity Reaction Status Date / Time No Known Allergies Allergy Verified 03/31/25 12:41 Review of Systems ROS Statement: Those systems with pertinent positive or pertinent negative responses have been documented in the HPI. ROS Other: All systems not noted in ROS Statement are negative. Past Medical History Past Medical History: Hypertension History of Any Multi-Drug Resistant Organisms: None Reported Past Surgical History: No Surgical Hx Reported Additional Past Surgical History / Comment(s): cortizone shot in back Past Anesthesia/Blood Transfusion Reactions: No Reported Reaction Past Psychological History: No Psychological Hx Reported Smoking Status: Current every day smoker Past Alcohol Use History: Occasional Past Drug Use History: None Reported - Past Family History Father Family Medical History: No Reported History General Exam Limitations: no limitations General appearance: alert, in no apparent distress Neck exam: Present: normal inspection. Absent: tenderness, meningismus, l ymphadenopathy Respiratory exam: Present: normal lung sounds bilaterally. Absent: respiratory distress, wheezes, rales, rhonchi, stridor Cardiovascular Exam: Present: regular rate, normal rhythm, normal heart sounds. Absent: systolic murmur, diastolic murmur, rubs, gallop, clicks GI/Abdominal exam: Present: soft, normal bowel sounds. Absent: distended, tenderness, guarding, rebound, rigid Right Lower Leg exam: Present: full ROM, tenderness, swelling, erythema. Absent: laceration, ecchymosis, deformity, palpable cord, Homans' sign Neurovascular tendon exam: Present: no vascular compromise Back exam: Present: normal inspection Course Vital Signs 03/31/25 03/31/25 12:39 13:41 Temperature 98.4 F 98.0 F Pulse Rate 73 76 Respiratory 18 20 Rate Blood Pressure 112/73 118/74 O2 Sat by Pulse 99 99 Oximetry Medical Decision Making - Medical Decision Making Was pt. sent in by a medical professional or institution (MINESH Camacho, SENIOR MANAGER, urgent care, hospital, or fdc...) When possible be specific @ -No Did you speak to anyone other than the patient for history (EMS, parent, family, police, friend...)? What history was obtained from this source @ -No Did you review nursing and triage notes (agree or disagree)? Why? @ -I reviewed and agree with nursing and triage notes Were old charts reviewed (outside hosp., previous admission, EMS record, old EKG, old radiological studies, urgent care reports/EKG's, fdc records)? Report findings @ -No old charts were reviewed Differential Diagnosis (chest pain, altered mental status, abdominal pain women, abdominal pain men, vaginal bleeding, weakness, fever, dyspnea, syncope, headache, dizziness, GI bleed, back pain, seizure, CVA, palpatations, mental health, musculoskeletal)? @ -Cellulitis, peripheral vascular disease, DVT, arterial insufficiency, hematoma, this list is not all inclusive EKG interpreted by me (3pts min.). @ -None X-rays interpreted by me (1pt min.). @ -None done CT interpreted by me (1pt min.). @ -None done U/S interpreted by me (1pt. min.). @ -None done What testing was considered but not performed or refused? (CT, X-rays, U/S, lab s)? Why? @ -None What meds were considered but not given or refused? Why? @ -None Did you discuss the management of the patient with other professionals (professionals i.e. DrMandi, PA, SENIOR MANAGER, lab, RT, psych nurse, social media content specialist, language translator, teacher, fare enforcement officer, hospice case manager)? Give summary @ -No Was smoking cessation discussed for >3mins.? @ -No Was critical care preformed (if so, how long)? @ -No Were there social determinants of health that impacted care today? How? (Homelessness, low income, unemployed, alcoholism, drug addiction, transportation, low edu. Level, literacy, decrease access to med. care, fpc, rehab)? @ -No Was there de-escalation of care discussed even if they declined (Discuss DNR or withdrawal of care, Hospice)? DNR status @ -No What co-morbidities impacted this encounter? (DM, HTN, Smoking, COPD, CAD, Cancer, CVA, ARF, Chemo, Hep., AIDS, mental health diagnosis, sleep apnea, morbid obesity)? @ -None Was patient admitted / discharged? Hospital course, mention meds given and route, prescriptions, significant lab abnormalities, going to OR and other pertinent info. @ -Discharge. 64 male presenting with pain to the right lower extremity. Patient's right calf is erythematous, mildly edematous and tender to touch and warmth to the touch. Area extends to the mid anterior calf. There is negative Homans' sign and there is no palpable cord on examination. Vitals are stable. Symptoms consistent with cellulitis. He is provided with IM injection of Rocephin and outpatient prescription for Keflex and Bactrim. Strict return parameters discussed if patient symptoms do not improve over the next 36 to 72 hours to report back to the emergency department in addition to if he starts to experience fevers, chills nausea or vomiting. Case discussed with my attending Dr. Benito. Undiagnosed new problem with uncertain prognosis? @ -No Drug Therapy requiring intensive monitoring for toxicity (Heparin, Nitro, Insulin, Cardizem)? @ -No Were any procedures done? @ -No Diagnosis/symptom? @ -Cellulitis Acute, or Chronic, or Acute on Chronic? @ -Acute Uncomplicated (without systemic symptoms) or Complicated (systemic symptoms)? @ -Uncomplicated Side effects of treatment? @ -No Exacerbation, Progression, or Severe Exacerbation? @ -No Poses a threat to life or bodily function? How? (Chest pain, [place], [place], pneumonia, PE, COPD, DKA, ARF, appy, cholecystitis, CVA, Diverticulitis, Homicidal, Suicidal, threat to staff... and all critical care pts) @ -No Disposition Clinical Impression: Cellulitis of right lower leg Disposition: HOME SELF-CARE Condition: Good Instructions (If sedation given, give patient instructions): Cellulitis (ED) Additional Instructions: Please return to the Emergency Department if symptoms worsen or any other concerns. Please complete both antibiotics, Keflex and Bactrim, as prescribed. If symptoms worsen or do not improve over the next 36 to 72 hours please report back to the emergency department. Prescriptions: Sulfamethox-Tmp 800-160Mg [Bactrim Ds] 1 each PO Q12HR #20 tab Cephalexin [Keflex] 500 mg PO Q6HR #40 cap Is patient prescribed a controlled substance at d/c from ED?: No Referrals: Mckay Pardo MD [STAFF PHYSICIAN] - 1-2 days Time of Disposition: 13:05
[2025-03-31] MEDS: HYDROcodone/APAP 5-325MG 1 EACH TAB PO STA (13:32)
[2025-03-31] MEDS: cefTRIAXone 1,000 MG VIAL (IM USE) IM STA (13:33)
[2025-03-31 13:42] VITALS: BP 118/74; PULSE 76; RESP 20; TEMP 98
== END 2025-03-31 15:16 | disposition home or self-care (01) ==
LOC: EC 12:36
DX: L03.115 Cellulitis of right lower limb (principal); F17.200 Nicotine dependence, unspecified, uncomplicated
CPT/HCPCS: 99283; 96372; J0696

== ENCOUNTER 2025-04-04 13:55 | Emergency (ER) | payer OTHER ==
[2025-04-04 14:00] VITALS: RESP 18; TEMP 97.8
[2025-04-04] MEDS ORDERED: VANCOMYCIN IV PER PHARMACY 1 EACH MISC MISCELLANE PRN (14:14)
[2025-04-04 14:31] LABS: Basophils # (A) 0.06 10*3/uL (0.00-0.10); Basophils % (A) 1.2 %; Eosinophils # (A) 0.08 10*3/uL (0.04-0.35); Eosinophils % (A) 1.6 %; HCT 41.0 % (39.6-50.0); HGB 13.8 g/dL (13.0-17.0); Lymphocytes # (A) 0.95 10*3/uL (0.90-5.00); Lymphocytes % (A) 18.7 %; MCH 29.8 pg (27.0-32.0); MCHC 33.7 g/dL (32.0-37.0); MCV 88.6 fL (80.0-97.0); Monocytes # (A) 0.58 10*3/uL (0.20-1.00); Monocytes % (A) 11.4 %; Neutrophils # (A) 3.38 10*3/uL (1.80-7.70); Neutrophils % (A) 66.5 %; Platelet Count 248 10*3/uL (140-440); RBC 4.63 10*6/uL (4.40-5.60); RDW 12.8 % (11.5-14.5); WBC 5.08 10*3/uL (4.50-10.00)
[2025-04-04 14:45] LABS: ALT 26 U/L (4-49); AST 27 U/L (17-59); African American GFR (CKD) 53 (>60 ml/min/1.73 sqM); Albumin 4.1 g/dL (3.5-5.0); Alkaline Phosphatase 112 U/L (38-126); Anion Gap 10 mmol/L; Blood Urea Nitrogen 32 mg/dL (9-20); Calcium 9.2 mg/dL (8.4-10.2); Carbon Dioxide 20 mmol/L (22-30); Chloride 109 mmol/L (98-107); Glucose 130 mg/dL (74-99); Non-African American GFR(CKD) 46 (>60 ml/min/1.73 sqM); Potassium 5.0 mmol/L (3.5-5.1); Sodium 139 mmol/L (137-145); Total Protein 6.6 g/dL (6.3-8.2)
[2025-04-04] MEDS: SODIUM CHLORIDE 0.9% 500 ML 500 ML IV ONE (15:21)
[2025-04-04] MEDS: VANCOMYCIN 2,500 MG in SODIUM CHLORIDE 0.9% 500 ML 500 ML IVPB ONE (15:22)
--- NOTE | 2025-04-04 15:30 | ED ---
General Adult HPI - General Chief complaint: Skin/Abscess/Foreign Body Stated complaint: Recheck-R leg pain Time Seen by Provider: 04/04/25 14:03 Source: patient, RN notes reviewed, old records reviewed Mode of arrival: ambulatory Limitations: no limitations - History of Present Illness Initial comments: 64-year-old male presents with pain and swelling to the right lower extremity. Patient was diagnosed with cellulitis 4 days prior. He was started on Keflex and Bactrim. He states that there has been some change in the area of redness but overall this is not improving. He denies fever or systemic symptoms. Patient is a nondiabetic. - Related Data Home Medications Medication Instructions Recorded Confirmed amLODIPine [Norvasc] 10 mg PO DAILY 01/16/20 01/16/20 lisinopriL 40 mg PO DAILY 01/16/20 01/16/20 Previous Rx's Medication Instructions Recorded HYDROcodone/APAP 7.5-325MG [[place] 1 each PO Q6HR PRN #28 tab 01/20/20 7.5] Ibuprofen 800 mg PO Q8H PRN #40 tab 01/20/20 cephALEXin [Keflex] 500 mg PO Q6HR 10 Days #40 cap 01/21/20 Cephalexin [Keflex] 500 mg PO Q6HR #40 cap 03/31/25 Sulfamethox-Tmp 800-160Mg [Bactrim 1 each PO Q12HR #20 tab 03/31/25 Ds] Allergies Allergy/AdvReac Type Severity Reaction Status Date / Time No Known Allergies Allergy Verified 04/04/25 14:00 Review of Systems ROS Statement: Those systems with pertinent positive or pertinent negative responses have been documented in the HPI. ROS Other: All systems not noted in ROS Statement are negative. Past Medical History Past Medical History: Hypertension Additional Past Medical History / Comment(s): staff infection to right lower leg. History of Any Multi-Drug Resistant Organisms: None Reported Past Surgical History: No Surgical Hx Reported Additional Past Surgical History / Comment(s): cortizone shot in back Past Anesthesia/Blood Transfusion Reactions: No Reported Reaction Past Psychological History: No Psychological Hx Reported Smoking Status: Former smoker Past Alcohol Use History: Occasional Past Drug Use History: None Reported - Past Family History Father Family Medical History: No Reported History General Exam Limitations: no limitations General appearance: alert, in no apparent distress Head exam: Present: atraumatic, normocephalic Eye exam: Present: normal appearance, PERRL ENT exam: Present: normal exam Neck exam: Present: normal inspection. Absent: tenderness, meningismus Respiratory exam: Present: normal lung sounds bilaterally. Absent: respiratory distress, wheezes Cardiovascular Exam: Present: regular rate, normal rhythm GI/Abdominal exam: Present: soft. Absent: distended, tenderness Extremities exam: Present: other (Erythema and warmth to the right lower extremity from the mid calf to the ankle. There is no fluctuance noted. Distal pulses are intact. No drainable abscess identified.) Course Vital Signs 04/04/25 13:56 Temperature 97.8 F Pulse Rate 65 Respiratory 18 Rate Blood Pressure 107/68 O2 Sat by Pulse 97 Oximetry Medical Decision Making - Medical Decision Making Was pt. sent in by a medical professional or institution (, MINESH, PRINTING PRESS MACHINE OPERATOR, urgent care, hospital, or snf...) When possible be specific @ -No Did you speak to anyone other than the patient for history (EMS, parent, family, police, friend...)? What history was obtained from this source @ -No Did you review nursing and triage notes (agree or disagree)? Why? @ -I reviewed and agree with nursing and triage notes Were old charts reviewed (outside hosp., previous admission, EMS record, old EKG, old radiological studies, urgent care reports/EKG's, snf records)? Report findings @ -No old charts were reviewed Differential Diagnosis necrotizing fasciitis, cellulitis, DVT, abscess EKG interpreted by me (3pts min.). @ -As above X-rays interpreted by me (1pt min.). @ -None done CT interpreted by me (1pt min.). @ -None done U/S interpreted by me (1pt. min.). @ -Ultrasound negative for DVT What testing was considered but not performed or refused? (CT, X-rays, U/S, labs)? Why? @ -None What meds were considered but not given or refused? Why? @ -None Did you discuss the management of the patient with other professionals (professionals i.e. MINESH Camacho, PRINTING PRESS MACHINE OPERATOR, lab, RT, psych nurse, medical social worker, assistant vice president, teacher, development officer, case resource manager)? Give summary @ -No Was smoking cessation discussed for >3mins.? @ -No Was critical care preformed (if so, how long)? @ -No Were there social determinants of health that impacted care today? How? (Homelessness, low income, unemployed, alcoholism, drug addiction, transpor tation, low edu. Level, literacy, decrease access to med. care, fdc, rehab)? @ -No Was there de-escalation of care discussed even if they declined (Discuss DNR or withdrawal of care, Hospice)? DNR status @ -No What co-morbidities impacted this encounter? (DM, HTN, Smoking, COPD, CAD, Cancer, CVA, ARF, Chemo, Hep., AIDS, mental health diagnosis, sleep apnea, morbid obesity)? @ -None Was patient admitted / discharged? Hospital course, mention meds given and route, prescriptions, significant lab abnormalities, going to OR and other pertinent info. @64-year-old male presenting for reevaluation of cellulitis. Patient has been on oral antibiotics for 4 days with persistent erythema and warmth to the right lower extremity. On exam there is no drainable abscess or fluctuant area. Patient is afebrile with stable vitals. No systemic symptoms. Normal white blood cell count, normal electrolytes, normal lactic acid. Patient given a dose of vancomycin in the emergency department. Patient is instructed to continue antibiotics as prescribed including Keflex and Bactrim. He should elevate the extremity is much as possible. He should follow closely with his primary care provider and return to the emergency department with fever or worsening symptoms. Undiagnosed new problem with uncertain prognosis? @ -No Drug Therapy requiring intensive monitoring for toxicity (Heparin, Nitro, Ins ulin, Cardizem)? @ -No Were any procedures done? @ -No Diagnosis/symptom? @ -Cellulitis Acute, or Chronic, or Acute on Chronic? @ -[Acute Uncomplicated (without systemic symptoms) or Complicated (systemic symptoms)? @ -Default Side effects of treatment? @ -No Exacerbation, Progression, or Severe Exacerbation? @ -No Poses a threat to life or bodily function? How? (Chest pain, [place], [place], pneumonia, PE, COPD, DKA, ARF, appy, cholecystitis, CVA, Diverticulitis, Homicidal, Suicidal, threat to staff... and all critical care pts) @ -Low risk at this time - Lab Data Result diagrams: 04/04/25 14:24 04/04/25 14:24 Lab Results 04/04/25 04/04/25 04/04/25 Range/Units 14:24 14:24 14:24 WBC 5.08 (4.50-10.00) 10*3/uL RBC 4.63 (4.40-5.60) 10*6/uL Hgb 13.8 (13.0-17.0) g/dL Hct 41.0 (39.6-50.0) % MCV 88.6 (80.0-97.0) fL MCH 29.8 (27.0-32.0) pg MCHC 33.7 (32.0-37.0) g/dL Plt Count 248 (140-440) 10*3/uL MPV 9.2 L (9.5-12.2) fL Immature Gran % (Auto) 0.6 % Neutrophils % 66.5 % Lymphocytes % 18.7 % Monocytes % 11.4 % Eosinophils % 1.6 % Basophils % 1.2 % Immature Gran # 0.03 (0.00-0.04) 10*3/uL Neutrophils # 3.38 (1.80-7.70) 10*3/uL Lymphocytes # 0.95 (0.90-5.00) 10*3/uL Monocytes # 0.58 (0.20-1.00) 10*3/uL Eosinophils # 0.08 (0.04-0.35) 10*3/uL Basophils # 0.06 (0.00-0.10) 10*3/uL Sodium 139 (137-145) mmol/L Potassium 5.0 (3.5-5.1) mmol/L Chloride 109 H (98-107) mmol/L Carbon Dioxide 20 L (22-30) mmol/L Anion Gap 10 mmol/L BUN 32 H (9-20) mg/dL Creatinine 1.60 H (0.66-1.25) mg/dL Est GFR (CKD-EPI)AfAm 53 (>60 ml/min/1.73 sqM) Est GFR (CKD-EPI)NonAf 46 (>60 ml/min/1.73 sqM) Glucose 130 H (74-99) mg/dL Plasma Lactic Acid Jaswant 0.6 L (0.7-2.0) mmol/L Calcium 9.2 (8.4-10.2) mg/dL Total Bilirubin 0.4 (0.2-1.3) mg/dL AST 27 (17-59) U/L ALT 26 (4-49) U/L Alkaline Phosphatase 112 (38-126) U/L Total Protein 6.6 (6.3-8.2) g/dL Albumin 4.1 (3.5-5.0) g/dL Disposition Clinical Impression: Cellulitis of right lower leg Disposition: HOME SELF-CARE Condition: Fair Instructions (If sedation given, give patient instructions): Cellulitis (ED) Is patient prescribed a controlled substance at d/c from ED?: No Referrals: Marcelo Urban DO [Primary Care Provider] - 1-2 days Time of Disposition: 15:45
--- NOTE | 2025-04-04 15:48 | US ---
EXAMINATION TYPE: US venous doppler duplex LE RT DATE OF EXAM: 04/04/2025 3:17 PM COMPARISON: 01/16/2020 CLINICAL INDICATION: Male, 64 years old with history of pain/swelling; Dog scratch resulting in RLE r edness, swelling, and pain x 10 days. ?Staff infection that is not responding to antibiotics. Patient denies any other signs, symptoms, or relevant history , Pain TECHNIQUE: The lower extremity deep venous system is examined utilizing real time linear array sonog darwin with graded compression, color doppler sonography, and spectral doppler. SIDE PERFORMED: Right FINDINGS: VESSELS IMAGED: Common Femoral Vein Deep Femoral Vein Greater Saphenous Vein * Femoral Vein Popliteal Vein Small Saphenous Vein * Proximal Calf Veins (* superficial vessels) Right Leg: Negative for DVT, Color Doppler imaging shows patency of the vessels. Spectral waveforms are within normal limits. Multiple rounded, hypoechoic, thickened/irregular lymph nodes seen within groin. IMPRESSION: 1. No ultrasound evidence for deep venous thrombosis in the right lower extremity. 2. Multiple enlarged lymph nodes seen in the right groin. These may be reactive given the patient's c linical presentation however short-term term 3 month follow-up ultrasound is recommended with conside ration for tissue sampling if progressed or still present at that time. [facility], , 04/04/2025 3:46 PM
[2025-04-04 17:45] VITALS: BP 136/89; PULSE 57
== END 2025-04-04 17:44 | disposition home or self-care (01) ==
LOC: EC 13:55
DX: L03.115 Cellulitis of right lower limb (principal); Z87.891 Personal history of nicotine dependence
CPT/HCPCS: 36415; 80053; 83605; 85025; 93971; 99283; 96365; 96366; J3373